=== PATIENT | male | born 2000 | race Caucasian/White ===

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

== ENCOUNTER 2023-11-09 22:41 | Emergency (ER) | payer OTHER ==
[~2023-11-09] VITALS: Ht 172.7 cm; Wt 113.4 kg
[~2023-11-09 22:41] MED LIST: PREDNISONE50 MG PO
[2023-11-09] MEDS ORDERED: methylPREDNISolone sod succ 125 MG VIAL IM ONE (23:10)
[2023-11-09] MEDS ORDERED: Amoxicillin/Clavulanate Pota 875 MG TAB PO ONE (23:10)
[2023-11-09] MEDS ORDERED: AMOX-CLAV 875-1 EACH PO (23:13)
[2023-11-09] MEDS ORDERED: PREDNISONE20 M1 PO (23:13)
== END 2023-11-09 23:18 | disposition home or self-care (01) ==
LOC: ED 22:41
DX: J06.9 Acute upper respiratory infection, unspecified (principal); H66.92 Otitis media, unspecified, left ear

== ENCOUNTER 2024-02-07 23:19 | Emergency (ER) | payer OTHER ==
[~2024-02-07] VITALS: Ht 172.7 cm; Wt 117.9 kg
[~2024-02-07 23:19] MED LIST changes: +AMOX-CLAV 875-1 EACH PO; +PREDNISONE20 M1 PO
[2024-02-08] MEDS ORDERED: PREDNISONE20 M1 PO (00:43)
[2024-02-08] MEDS ORDERED: KENALOG 0.025%15 GM T (00:43)
[2024-02-08] MEDS ORDERED: Dexamethasone Sodium Phospha 20 MG/5 ML VIAL IM ONE (00:45)
== END 2024-02-08 00:54 | disposition home or self-care (01) ==
LOC: ED 23:19
DX: L25.9 Unspecified contact dermatitis, unspecified cause (principal)